=== PATIENT | female | born 1995 | race Asian ===

== ENCOUNTER 2024-12-12 19:19 | Emergency (ER) | payer SELFPAY ==
[2024-12-12 19:21] VITALS: BP 115/58; PULSE 70; RESP 14; TEMP 36.8; O2SAT 100
--- OUTSIDE RECORDS SUMMARY | 2024-12-12 19:21 | XMS_ITS | Clinical Summary ---
Author Organization [facility] [employer] Address [address] [place] [address] Care Team Providers Care Buckle Wire Inserter Name Role Phone Unavailable Primary Care Provider Unavailabl e Source Comments [facility],non-owned Affiliates and Associated Physician Practices is amultiple site organization consisting of ambulatory clinics and hospital sitesin [place], [place], [place] and [place]. This disclosure is being madepursuant to the Care Everywhere program and may not contain all information available regarding this patient. Last updated 18.[facility] [employer] Allergies No known active allergies Medications * Be aware that medications may not be up to date on this document. Alwaysverify current medications with the patient. Medication Sig Dispensed Refills Start Date End Date Status Norethin-Eth Estrad-Fe Biphas (LO LOESTRIN FE PO) Active fluticasone propionate (FLONASE) 50 MCG/ACT nasal spray [place] 2 sprays into each nostril once daily 1 bottles 10/06/2017 Active Active Problems No known active problems Social History Tobacco Use Types Packs/Day Years Used Date Smoking Tobacco: Never Smokeless Tobacco: Never Sex and Gender Information Value Date Recorded Sex Assigned at Not on file Gender Identity Not on file Sexual Orientation Not on file Last Filed Vital Signs Vital Sign Reading Time Taken Comments Blood Pressure 106/68 10/06/2017 2:47 PM COOLER SUPERVISOR Pulse 76 02/26/2017 10:53 AM CDT Temperature 36.6 ??C (97.9 ??F) 10/06/2017 2:47 PM CS T Respiratory Rate 16 02/26/2017 10:53 AM CDT Oxygen Saturation 98% 02/26/2017 10:53 AM CDT Inhaled Oxygen Concentration - - Weight 61.2 kg (135 lb) 10/06/2017 2:47 PM COOLER SUPERVISOR Height 160 cm (5' 3 ) 10/06/2017 2:47 PM COOLER SUPERVISOR Body Mass Index 23.91 10/06/2017 2:47 PM COOLER SUPERVISOR Plan of Treatment Health Maintenance Due Date Last Done Comments PAP SMEAR 1996 HIV SCREENING 2011 HEPATITIS C SCREENING 11/23/2014 DTAP/TDAP/TD VACCINES (1 - Tdap) 2015 HEPATITIS B VACCINE (1 of 3 - 19+ 3-dose series) 2015 COVID-19 VACCINE ( - 2023-2 5 season) 2024 INFLUENZA VACCINE (#1) 2024 DEPRESSION SCREENING 11/12/2024 ZOSTER VACCINE (1 of 2) 2046 HIB VACCINE Aged Out No longer eligi ble based on patient's age to complete this topic HPV VACCINE Aged Out No longer eligi ble based on patient's age to complete this topic MENINGOCOCCAL (Group B) VACCINE Aged Out No longer eligible based on patient's age to complete this topic MENINGOCOCCAL VACCINE Aged Out No neil maritza eligible based on patient's age to complete this topic PNEUMOCOCCAL VACCINE Aged Out No long er eligible based on patient's age to complete this topic
--- OUTSIDE RECORDS SUMMARY | 2024-12-12 19:21 | XMS_ITS | Patient Health Summary ---
Author Organization [facility] [employer] Address [address] [place] [address] Care Team Providers Care Packer Insulation Name Role Phone Unavailable Primary Care Provider Unavailabl e Note from [facility],non-owned Affiliates and Associated Physician Practices is amultiple site organization consisting of ambulatory clinics and hospital sitesin [place], [place], [place] and [place]. This disclosure is being madepursuant to the Care Everywhere program and may not contain all information available regarding this patient. Last updated 18.[facility] [employer] Allergies No known active allergies Medications * Be aware that medications may not be up to date on this document. Alwaysverify current medications with the patient. * Norethin-Eth Estrad-Fe Biphas (LO LOESTRIN FE PO) * fluticasone propionate (FLONASE) 50 MCG/ACT nasal spray(Started 10/06/2017) [place] 2 sprays into each nostril once daily Active Problems No known active problems Social History Tobacco Use Types Packs/Day Years Used Date Smoking Tobacco: Never Smokeless Tobacco: Never Sex and Gender Information Value Date Recorded Sex Assigned at Not on file Gender Identity Not on file Sexual Orientation Not on file Last Filed Vital Signs Vital Sign Reading Time Taken Comments Blood Pressure 106/68 10/06/2017 2:47 PM PATTERN STORAGE CLERK Pulse 76 02/26/2017 10:53 AM CDT Temperature 36.6 ??C (97.9 ??F) 10/06/2017 2:47 PM CS T Respiratory Rate 16 02/26/2017 10:53 AM CDT Oxygen Saturation 98% 02/26/2017 10:53 AM CDT Inhaled Oxygen Concentration - - Weight 61.2 kg (135 lb) 10/06/2017 2:47 PM PATTERN STORAGE CLERK Height 160 cm (5' 3 ) 10/06/2017 2:47 PM PATTERN STORAGE CLERK Body Mass Index 23.91 10/06/2017 2:47 PM PATTERN STORAGE CLERK Procedures * URINALYSIS AUTO - POINT OF CARE (AMB) STL(Performed 02/26/2017) Performed for Acute cystitis with hematuria Results * URINALYSIS AUTO - POINT OF CARE (AMB) STL (02/26/2017 11:05 AM CDT) Clarity UA POCT clear Color UA POCT yellow Leukocyte UA 70 Negative Nitrite UA POCT neg Negative Urobilinogen UA 0.2 0.1 - 1.0 Protein UA POCT neg Negative pH UA 6.5 5.0 - 8.0 pH units Blood UA 1 Negative Specific [place] UA POCT 1.010 1.002 - 1.030 Ketone UA neg Negative Bilirubin UA POCT neg Negative Glucose UA neg Negative Expiration Date 06/10/18 Lot # [id number] QC Verified Yes Yes URINE / Unknown 02/26/2017 1 1:05 AM CDT Jose Gaston APRN-[facility] - POINT OF CARE ORDERABLES
--- OUTSIDE RECORDS SUMMARY | 2024-12-12 19:21 | XMS_ITS | Referral Summary ---
Author Organization [facility] [employer] Address [address] [place] [address] Care Team Providers Care Pretzel Cooker Name Role Phone Unavailable Primary Care Provider Unavailabl e Source Comments [facility],non-owned Affiliates and Associated Physician Practices is amultiple site organization consisting of ambulatory clinics and hospital sitesin [place], [place], [place] and [place]. This disclosure is being madepursuant to the Care Everywhere program and may not contain all information available regarding this patient. Last updated 18.[facility] [employer] Allergies No known active allergies Medications * Be aware that medications may not be up to date on this document. Alwaysverify current medications with the patient. Medication Sig Dispensed Refills Start Date End Date Status Norethin-Eth Estrad-Fe Biphas (LO LOESTRIN FE PO) Active fluticasone propionate (FLONASE) 50 MCG/ACT nasal spray [place] 2 sprays into each nostril once daily [...] Comments Blood Pressure 106/68 10/06/2017 2:47 PM RECREATIONAL LEADER Pulse 76 02/26/2017 10:53 AM CDT Temperature 36.6 ??C (97.9 ??F) 10/06/2017 2:47 PM CS T Respiratory Rate 16 02/26/2017 10:53 AM CDT Oxygen Saturation 98% 02/26/2017 10:53 AM CDT Inhaled Oxygen Concentration - - Weight 61.2 kg (135 lb) 10/06/2017 2:47 PM RECREATIONAL LEADER Height 160 cm (5' 3 ) 10/06/2017 2:47 PM RECREATIONAL LEADER Body Mass Index 23.91 10/06/2017 2:47 PM RECREATIONAL LEADER Plan of Treatment Not on file
--- NOTE | 2024-12-12 20:20 | PC.NURSE ---
patient observed ambulating with a steady unassisted gait towards the exit of the ed with visitor. pt is no distress at this time with bleeding under control.
--- OUTSIDE RECORDS SUMMARY | 2024-12-12 20:26 | XMS_ITS | Patient Health Summary ---
Author Organization [facility] [employer] Address [address] [place] [address] Care Team Providers Care Director Of Estate Name Role Phone Unavailable Primary Care Provider Unavailabl e Note from [facility],non-owned Affiliates and Associated Physician Practices is amultiple site organization consisting of ambulatory clinics and hospital sitesin [place], [place], [place] and [place]. This disclosure is being madepursuant to the Care Everywhere program and may not contain all information available regarding this patient. Last updated 18.[facility] [employer] Allergies No known active allergies Medications * Be aware that medications may not be up to date on this document. Alwaysverify current medications with the patient. * Norethin-Eth Estrad-Fe Biphas (LO LOESTRIN FE PO) * fluticasone propionate (FLONASE) 50 MCG/ACT nasal spray(Started 10/06/2017) [place] 2 sprays into each nostril once daily [...] Comments Blood Pressure 106/68 10/06/2017 2:47 PM LAST SAWYER Pulse 76 02/26/2017 10:53 AM CDT Temperature 36.6 ??C (97.9 ??F) 10/06/2017 2:47 PM CS T Respiratory Rate 16 02/26/2017 10:53 AM CDT Oxygen Saturation 98% 02/26/2017 10:53 AM CDT Inhaled Oxygen Concentration - - Weight 61.2 kg (135 lb) 10/06/2017 2:47 PM LAST SAWYER Height 160 cm (5' 3 ) 10/06/2017 2:47 PM LAST SAWYER Body Mass Index 23.91 10/06/2017 2:47 PM LAST SAWYER Procedures * URINALYSIS AUTO - POINT OF [...] pH units Blood UA 1 Negative Specific [place] UA POCT 1.010 1.002 - 1.030 Ketone UA neg Negative Bilirubin UA POCT neg Negative Glucose UA neg Negative Expiration Date 06/10/18 Lot # [id number] QC Verified Yes Yes URINE / Unknown 02/26/2017 1 1:05 AM CDT Jose Gaston APRN-[facility] - POINT OF CARE ORDERABLES
--- OUTSIDE RECORDS SUMMARY | 2024-12-12 20:26 | XMS_ITS | Clinical Summary ---
Author Organization [facility] [employer] Address [address] [place] [address] Care Team Providers Care Oracle Fusion Consultant Name Role Phone Unavailable Primary Care Provider Unavailabl e Source Comments [facility],non-owned Affiliates and Associated Physician Practices is amultiple site organization consisting of ambulatory clinics and hospital sitesin [place], [place], [place] and [place]. This disclosure is being madepursuant to the Care Everywhere program and may not contain all information available regarding this patient. Last updated 18.[facility] [employer] Allergies No known active allergies Medications * Be aware that medications may not be up to date on this document. Alwaysverify current medications with the patient. Medication Sig Dispensed Refills Start Date End Date Status Norethin-Eth Estrad-Fe Biphas (LO LOESTRIN FE PO) Active fluticasone propionate (FLONASE) 50 MCG/ACT nasal spray [place] 2 sprays into each nostril once daily [...] Comments Blood Pressure 106/68 10/06/2017 2:47 PM AIRPORT OPERATIONS DUTY MANAGER Pulse 76 02/26/2017 10:53 AM CDT Temperature 36.6 ??C (97.9 ??F) 10/06/2017 2:47 PM CS T Respiratory Rate 16 02/26/2017 10:53 AM CDT Oxygen Saturation 98% 02/26/2017 10:53 AM CDT Inhaled Oxygen Concentration - - Weight 61.2 kg (135 lb) 10/06/2017 2:47 PM AIRPORT OPERATIONS DUTY MANAGER Height 160 cm (5' 3 ) 10/06/2017 2:47 PM AIRPORT OPERATIONS DUTY MANAGER Body Mass Index 23.91 10/06/2017 2:47 PM AIRPORT OPERATIONS DUTY MANAGER Plan of Treatment Health Maintenance Due Date [...]
--- OUTSIDE RECORDS SUMMARY | 2024-12-12 20:26 | XMS_ITS | Referral Summary ---
Author Organization [facility] [employer] Address [address] [place] [address] Care Team Providers Care Applications Consultant Name Role Phone Unavailable Primary Care Provider Unavailabl e Source Comments [facility],non-owned Affiliates and Associated Physician Practices is amultiple site organization consisting of ambulatory clinics and hospital sitesin [place], [place], [place] and [place]. This disclosure is being madepursuant to the Care Everywhere program and may not contain all information available regarding this patient. Last updated 18.[facility] [employer] Allergies No known active allergies Medications * Be aware that medications may not be up to date on this document. Alwaysverify current medications with the patient. Medication Sig Dispensed Refills Start Date End Date Status Norethin-Eth Estrad-Fe Biphas (LO LOESTRIN FE PO) Active fluticasone propionate (FLONASE) 50 MCG/ACT nasal spray [place] 2 sprays into each nostril once daily [...] Comments Blood Pressure 106/68 10/06/2017 2:47 PM BOAT MASTER Pulse 76 02/26/2017 10:53 AM CDT Temperature 36.6 ??C (97.9 ??F) 10/06/2017 2:47 PM CS T Respiratory Rate 16 02/26/2017 10:53 AM CDT Oxygen Saturation 98% 02/26/2017 10:53 AM CDT Inhaled Oxygen Concentration - - Weight 61.2 kg (135 lb) 10/06/2017 2:47 PM BOAT MASTER Height 160 cm (5' 3 ) 10/06/2017 2:47 PM BOAT MASTER Body Mass Index 23.91 10/06/2017 2:47 PM BOAT MASTER Plan of Treatment Not on file
== END 2024-12-12 23:57 | disposition left against medical advice (07) ==
PROVIDERS: PCP Pediatrics
DX: S61.212A Laceration without foreign body of right middle finger without damage to nail, initial encounter (principal)
CPT/HCPCS: 99199